=== PATIENT | male | born 1960 | race Caucasian/White ===

== ENCOUNTER 2017-09-08 16:28 | Observation (INO) | payer OTHER ==
[~2017-09-08] VITALS: Ht 172.7 cm; Wt 86.0 kg
[2017-09-08 16:56] LABS: HEMATOCRIT 51.9 % (38.0-50.0); HEMOGLOBIN 18.1 G/DL (12.5-16.6); MCHC 34.9 G/DL (30.0-36.0); MCV 85.9 FL (86-99); PLATELET COUNT 175 K/uL (156-360); RBC DIS.WIDTH-SD 40.4 % (39-53); RED BLOOD COUNT 6.04 M/uL (4.00-5.50)
[2017-09-08 17:06] LABS: CHLORIDE 101 mEq/L (99-109); POTASSIUM 4.1 mEq/L (3.7-5.4); SODIUM 139 mEq/L (136-147)
[2017-09-08 17:08] LABS: GLUCOSE 108 mg/dL (70-99)
[2017-09-08 17:12] LABS: CREATININE 1.3 mg/dL (0.6-1.3); GFR ESTIMATE (CALCULATED) > 59 mL/min/ (58.99-99999)
[2017-09-08 17:13] LABS: UREA NITROGEN (BUN) 27 mg/dL (9-23)
[2017-09-08 17:20] LABS: TROP-I INTERPRETATION NEGATIVE; TROPONIN-I 0.03 ng/mL (0.0-0.30)
[2017-09-08] MEDS ORDERED: LIPITOR40 MG PO (17:38)
[2017-09-08] MEDS ORDERED: TOPROL XL25 MG PO (17:38)
[2017-09-08] MEDS ORDERED: ALTACE5 MG PO (17:39)
[2017-09-08] MEDS ORDERED: FISH OIL 1,0001 EAC7 PO (17:39)
[2017-09-08] MEDS ORDERED: ASPIR 8181 M1 PO (17:39)
[2017-09-08] MEDS ORDERED: JARDIANCE10 MG PO (17:39)
[2017-09-08 20:14] VITALS: BP 117/65
[2017-09-09 00:13] LABS: TROP-I INTERPRETATION NEGATIVE; TROPONIN-I 0.28 ng/mL (0.0-0.30)
[2017-09-09 00:35] VITALS: BP 109/73
[2017-09-09 04:06] VITALS: BP 110/74
[2017-09-09 05:05] LABS: HEMATOCRIT 44.2 % (38.0-50.0); MCV 87.7 FL (86-99); PLATELET COUNT 166 K/uL (156-360); RBC DIS.WIDTH-CV 13.3 % (11.8-14.6); RBC DIS.WIDTH-SD 42.7 % (39-53); RED BLOOD COUNT 5.04 M/uL (4.00-5.50); WHITE BLOOD COUNT 6.1 K/uL (4.1-10.2)
[2017-09-09 05:58] LABS: CHLORIDE 105 MEQ/L (99-109); CREATININE 0.9 MG/DL (0.6-1.3); GFR ESTIMATE (CALCULATED) > 59 mL/min/ (58.99-99999); GLUCOSE 117 mg/dL (70-99); HEMOGLOBIN 14.6 G/DL (12.5-16.6); POTASSIUM 3.9 MEQ/L (3.7-5.4); SODIUM 140 MEQ/L (136-147); UREA NITROGEN (BUN) 22 mg/dL (9-23)
[2017-09-09 06:26] LABS: TROP-I INTERPRETATION INDETERMINATE; TROPONIN-I 0.44 ng/mL (0.0-0.30)
[2017-09-09 08:08] LABS: INTACT PARATHYROID HORMONE 49 pg/mL (10-69)
[2017-09-09 08:45] VITALS: BP 105/65
[2017-09-09 10:37] LABS: TROP-I INTERPRETATION INDETERMINATE; TROPONIN-I 0.35 ng/mL (0.0-0.30)
[2017-09-09 11:47] VITALS: BP 134/80
[2017-09-09 19:58] VITALS: BP 111/70
[2017-09-10 00:21] VITALS: BP 103/67
[2017-09-10 03:52] VITALS: BP 101/64
[2017-09-10 07:25] VITALS: BP 121/83
[2017-09-10] MEDS ORDERED: IMDUR30 MG PO (10:52)
[2017-09-10] MEDS ORDERED: CLOPIDOGREL75 MG PO (10:52)
[2017-09-10] MEDS ORDERED: NITROGLYCERIN0.4 MG SL (10:52)
== END 2017-09-10 11:34 | disposition home or self-care (01) ==
LOC: EME 16:28 → ENRESERV 18:19 → EDOF 18:22 → 4SOUTH 18:22 → ENRESERV 18:34 → 4SOUTH 20:04
PROVIDERS: Hospitalist; Nurse Practitioner Adult Health
DX: I25.110 Atherosclerotic heart disease of native coronary artery with unstable angina pectoris (principal); T82.855A Stenosis of coronary artery stent, initial encounter; I25.84 Coronary atherosclerosis due to calcified coronary lesion; R07.9 Chest pain, unspecified; E11.9 Type 2 diabetes mellitus without complications; I10 Essential (primary) hypertension; E78.5 Hyperlipidemia, unspecified; Z95.5 Presence of coronary angioplasty implant and graft; Z87.891 Personal history of nicotine dependence; R61 Generalized hyperhidrosis; E86.0 Dehydration; Y83.1 Surgical operation with implant of artificial internal device as the cause of abnormal reaction of the patient, or of later complication, without mention of misadventure at the time of the procedure
CPT/HCPCS: 71046; 80048; 82948; 83970; 84484; 85027; 93005; 99281; 99285; C1769; C1887; G0378; J1644; J2250; J3010; J7030